=== PATIENT | female | born 1985 | race Caucasian/White ===

== ENCOUNTER → 2018-07-05 14:27 | Outpatient (CLI) | payer BC, SELFPAY ==
[2018-07-14 12:25] LABS: HPV HC, High Risk Negative (Negative)
[2018-07-14 12:29] LABS: HPV Reflexed? YES, CHARGE PATIENT
== END ==
PROVIDERS: Visit Provider Obstetrics & Gynecology
DX: Z12.4 Encounter for screening for malignant neoplasm of cervix (principal)
CPT/HCPCS: 87624; 88175; G0145

== ENCOUNTER → 2019-03-14 13:08 | Outpatient (CLI) | payer BC, SELFPAY ==
--- NOTE | 2019-03-14 13:26 | RAD_ITS ---
HISTORY:left foot arch and heel pain x 2 days, no injury left foot arch and heel pain x 2 days, no injury COMPARISON: None FINDINGS: # of images incl. paperwork: 3 XR Foot Min 3 Views: Left BONE AND JOINTS: No acute fracture or subluxation. Small plantar calcaneal spur SOFT TISSUES: Unremarkable. No radiopaque foreign body. RAD/Foot min 3 Views IMPRESSION: No acute pathology Small plantar calcaneal spur at 2144 Reported and signed by: Fatemeh Ram DO Electronically Signed: Fatemeh Ram DO at 21:42 EDT Tel , Service support ,
== END ==
PROVIDERS: Family Provider Nurse Practitioner Gerontology; Referring Provider Nurse Practitioner Gerontology; Visit Provider Nurse Practitioner Gerontology
DX: M79.672 Pain in left foot (principal)
CPT/HCPCS: 73630

== ENCOUNTER → 2019-07-08 09:15 | Outpatient (CLI) | payer BC, SELFPAY ==
[2019-07-11 12:07] LABS: Age Gdln ACOG Testing 30-65 (.)
[2019-07-12 13:16] LABS: HPV APTIMA, High Risk Negative (Negative)
[2019-07-12 13:25] LABS: HPV Reflexed? YES, CHARGE PATIENT
== END ==
PROVIDERS: Visit Provider Obstetrics & Gynecology
DX: Z12.4 Encounter for screening for malignant neoplasm of cervix (principal)
CPT/HCPCS: 87624; 88175; G0145

== ENCOUNTER → 2021-06-04 08:37 | Outpatient (CLI) | payer OTHER, SELFPAY ==
--- NOTE | 2021-06-04 08:40 | BI_ITS ---
MAMMOGRAPHY - BILATERAL DIAGNOSTIC REASON FOR EXAM: Female, 35 years old. Superficial skin boil treated with antibiotics. Lesion nearly completely healed. PERTINENT HISTORY: Non-contributory. TECHNIQUE: Digital examination. Mediolateral oblique (MLO) and craniocaudad (CC) views of both breasts were obtained. CAD: CAD was performed on this study. COMPARISON: None. Baseline examination. FINDINGS: Breast Composition: The breasts are heterogeneously dense, which may obscure small masses. There are no dominant masses or suspicious calcifications. No other significant abnormalities are identified. BI/DIAG MAMM W/CAD, BILAT IMPRESSION: Stable bilateral diagnostic mammogram. Follow-up screening mammogram at age 40 recommended. ASSESSMENT CATEGORY: BIRADS Category 1: Negative. A letter regarding these results will be sent to the patient by the facility within 30 days. FOLLOW UP RECOMMENDATION: Begin screening mammograms at 40 years of age. (N) Approximately 10% of breast cancers are not detected by mammography. A normal mammogram should not delay biopsy of a clinically suspicious abnormality. Electronically Signed: Mason Simon MD at 9:32 EST , Service support ,
== END ==
PROVIDERS: PCP Internal Medicine; Referring Provider Internal Medicine; Visit Provider Internal Medicine
DX: N64.59 Other signs and symptoms in breast (principal)
CPT/HCPCS: 77062; 77066; G0279

== ENCOUNTER 2021-09-28 17:01 | Outpatient (CLI) | payer BC, SELFPAY ==
[2021-10-04 15:57] LABS: HPV APTIMA, High Risk Negative (Negative)
== END 2021-09-28 23:59 | disposition home or self-care (01) ==
LOC: LABSPEC 17:03
PROVIDERS: PCP Internal Medicine; Visit Provider Student in an Organized Health Care Education/Training Program
DX: Z12.4 Encounter for screening for malignant neoplasm of cervix (principal)
CPT/HCPCS: 87624; 88175; G0145